=== PATIENT | male | born 1970 | race Two or more races ===

== ENCOUNTER 2021-04-15 21:15 | Inpatient (IN) | payer MEDICAID, OTHER ==
[~2021-04-15] VITALS: Ht 160 cm; Wt 67.3 kg
[2021-04-15 23:06] LABS: Basophils # (auto) 0 10 ^3/uL (0-0.2); Basophils % (auto) 0.3 % (0.0-2.0); Eosinophils # (auto) 0 10 ^3/uL (0-0.8); Eosinophils % (auto) 0.6 % (0.0-7.0); Hematocrit 42.3 % (41.0-53.0); Hemoglobin 14.9 g/dL (13.5-17.5); Lymphocytes # (auto) 1.6 10 ^3/uL (0.4-5.4); Lymphocytes % (auto) 18.5 % (10.0-50.0); Mean Corpuscular Hemoglobin 29.4 pg (28.0-32.0); Mean Corpuscular Hgb Conc. 35.3 g/dL (32.0-36.0); Mean Corpuscular Volume 83.3 fL (80.0-100.0); Monocytes # (auto) 0.6 10 ^3/uL (0-1.3); Monocytes % (auto) 6.4 % (0.0-12.0); Neutrophils # (auto) 6.4 10 ^3/uL (1.6-8.6); Neutrophils % (auto) 74.2 % (37.0-80.0); Red Blood Cells 5.07 10^6/uL (4.5-5.90); Red Cell Distribution Width 13.4 % (11.8-14.3); White Blood Cell 8.6 10^3/uL (4.4-10.8)
[2021-04-15 23:24] LABS: Albumin 3.5 g/dL (3.4-5.0); Anion Gap 8 (5-15); Blood Alcohol < 3.0 mg/dL (0-5); Blood Urea Nitrogen 16 mg/dL (7-18); Calcium 8.4 mg/dL (8.5-10.1); Carbon Dioxide 25 mmol/L (21-32); Chloride 106 mmol/L (98-107); GFR African American 110 mL/min; GFR Non-African American 91 mL/min; Glucose 181 mg/dL (74-106); Partial Thromboplastin Time 23.3 sec (23.6-33.0); Potassium 4.1 mmol/L (3.5-5.1); Sodium 139 mmol/L (136-145)
[2021-04-15 23:36] LABS: Alanine Aminotransferase 109 U/L (16-61); Alkaline Phosphatase 148 U/L (45-117); Aspartate Aminotransferase 54 U/L (15-37); Bilirubin, Total 0.3 mg/dL (0.2-1.0); Total Protein 6.8 g/dL (6.4-8.2)
[2021-04-16] MEDS ORDERED: METOCLOPRAMIDE HCL 5MG/ml INJ 2ml VIAL IV ONE
[2021-04-16] MEDS ORDERED: KETOROLAC TROMETH 30 MG/ML 1ML VIAL IV ONE
[2021-04-16] MEDS ORDERED: SODIUM CHLORIDE 0.9% 1,000 ML IV ONE
[2021-04-16] MEDS ORDERED: DOCUSATE SOD 100 MG CAP PO PRN (05:45)
[2021-04-16] MEDS ORDERED: hydrALAZINE HCL 20 MG/ML VL IV PRN (05:45)
[2021-04-16] MEDS ORDERED: ACETAMINOPHEN 325 MG TAB PO PRN (05:45)
[2021-04-16] MEDS ORDERED: HYDROcodone-ACET 5/325MG TAB PO PRN (05:45)
[2021-04-16] MEDS ORDERED: MORPHINE SULFATE 4 MG/ML SYR/VIAL IV PRN (05:45)
[2021-04-16] MEDS ORDERED: ONDANSETRON HCL 4 MG/2 ML VIAL IV PRN (05:45)
[2021-04-16] MEDS ORDERED: ACETAMINOPHEN 500 MG TAB PO PRN (07:30)
[2021-04-16] MEDS ORDERED: NITROGLYCERIN 0.4 MG SL TAB SL PRN (07:45)
[2021-04-16] MEDS ORDERED: MORPHINE SULFATE INJECTION 2 MG/ML SYRG IV PRN (07:45)
[2021-04-16 07:48] LABS: Urine Bacteria NONE SEEN /hpf (None Seen); Urine Blood Negative /uL (Negative); Urine Mucus FEW (None Seen); Urine Specific Gravity 1.013 (1.001-1.035); Urine WBC 1 /hpf (0 - 3)
[2021-04-16 07:56] LABS: Amphetamine Screen, Urine NEGATIVE (NEGATIVE); Barbiturate Scree,Urine NEGATIVE (NEGATIVE); Benzodiazephine Screen, Urine NEGATIVE (NEGATIVE); Cannabinoid Screen, Urine POSITIVE (NEGATIVE); Cocaine Screen, Urine NEGATIVE (NEGATIVE); Opiate Scree,Urine NEGATIVE (NEGATIVE); Phencyclidine Screen, Urine NEGATIVE (NEGATIVE)
[2021-04-16] MEDS: ALBUTEROL SULF HFA 90MCG INH 200DOSE IN PRN ×2 (09:05→23:46)
[2021-04-16] MEDS: BUDESONIDE (INHALATION) 180 MCG IH IN SCH ×2 (09:05→22:09)
[2021-04-16] MEDS: cefTRIAXone 1GM/50ML D5W 50 ML IV SCH (09:18)
[2021-04-16 09:36] LABS: Basophils # (auto) 0 10 ^3/uL (0-0.2); Basophils % (auto) 0.3 % (0.0-2.0); Eosinophils # (auto) 0 10 ^3/uL (0-0.8); Eosinophils % (auto) 0.6 % (0.0-7.0); Hemoglobin 14.1 g/dL (13.5-17.5); Lymphocytes # (auto) 2.4 10 ^3/uL (0.4-5.4); Lymphocytes % (auto) 29.6 % (10.0-50.0); Mean Corpuscular Hemoglobin 29.8 pg (28.0-32.0); Mean Corpuscular Hgb Conc. 35.2 g/dL (32.0-36.0); Mean Corpuscular Volume 84.7 fL (80.0-100.0); Monocytes # (auto) 0.6 10 ^3/uL (0-1.3); Monocytes % (auto) 7.7 % (0.0-12.0); Neutrophils # (auto) 5.1 10 ^3/uL (1.6-8.6); Neutrophils % (auto) 61.8 % (37.0-80.0); Red Blood Cells 4.72 10^6/uL (4.5-5.90); Red Cell Distribution Width 13.3 % (11.8-14.3); White Blood Cell 8.2 10^3/uL (4.4-10.8)
[2021-04-16 09:46] LABS: Albumin 3.2 g/dL (3.4-5.0); BUN/Creatinine Ratio 17.3; Calcium 8.2 mg/dL (8.5-10.1); Potassium 4.1 mmol/L (3.5-5.1)
[2021-04-16 09:51] LABS: Bilirubin, Total 0.3 mg/dL (0.2-1.0); Total Protein 6.4 g/dL (6.4-8.2)
[2021-04-16] MEDS: ZINC SULFATE 220mg CAP or TAB PO SCH (10:16)
[2021-04-16] MEDS: ASPirin 81 mg TAB PO SCH (10:16)
[2021-04-16] MEDS: AZITHROMYCIN 500MG/ 250ML 250 ML IV SCH (10:16)
[2021-04-16] MEDS: DexAMETHasone SOD PHOS 10MG/1ML VIAL INJ IV SCH (10:16)
[2021-04-16] MEDS: FAMOTIDINE (10MG/ML) 2ML VL IV SCH (10:16)
[2021-04-16] MEDS: ASCORBIC ACID 1,000 MG TAB PO SCH (10:17)
[2021-04-16] MEDS: ENOXAPARIN SOD 40 MG/0.4 ML SYRINGE SC SCH (10:17)
[2021-04-16] MEDS: CHOLECALCIFEROL (VITD3) 2,000 UNIT CAP/TAB PO SCH (10:17)
[2021-04-16 12:22] VITALS: BP 152/85
[2021-04-16 14:40] VITALS: BP 154/101
[2021-04-16] MEDS ORDERED: LOSARTAN POTASSIUM 25 MG TAB PO ONE (15:30)
[2021-04-16 16:53] VITALS: BP 154/101
[2021-04-16 22:00] VITALS: BP 152/74
[2021-04-16] MEDS ORDERED: ATORVASTATIN 20 MG TAB PO SCH (22:00)
[2021-04-17 05:00] VITALS: BP 148/92
[2021-04-17 08:28] LABS: Basophils # (auto) 0 10 ^3/uL (0-0.2); Basophils % (auto) 0.1 % (0.0-2.0); Eosinophils # (auto) 0 10 ^3/uL (0-0.8); Hematocrit 40.4 % (41.0-53.0); Hemoglobin 14.4 g/dL (13.5-17.5); Lymphocytes # (auto) 2.4 10 ^3/uL (0.4-5.4); Lymphocytes % (auto) 19.7 % (10.0-50.0); Mean Corpuscular Hgb Conc. 35.5 g/dL (32.0-36.0); Mean Corpuscular Volume 84.5 fL (80.0-100.0); Monocytes # (auto) 0.6 10 ^3/uL (0-1.3); Neutrophils % (auto) 75.2 % (37.0-80.0); Red Blood Cells 4.78 10^6/uL (4.5-5.90); Red Cell Distribution Width 13.5 % (11.8-14.3)
[2021-04-17 08:39] LABS: Albumin 3.5 g/dL (3.4-5.0); Calcium 8.7 mg/dL (8.5-10.1); Potassium 3.8 mmol/L (3.5-5.1)
[2021-04-17 08:43] LABS: BUN/Creatinine Ratio 20.4; Bilirubin, Total 0.5 mg/dL (0.2-1.0)
[2021-04-17 09:00] VITALS: BP 140/80
[2021-04-17] MEDS: ALBUTEROL SULF HFA 90MCG INH 200DOSE IN PRN ×2 (09:23→18:59)
[2021-04-17] MEDS: BUDESONIDE (INHALATION) 180 MCG IH IN SCH ×2 (09:24→18:59)
[2021-04-17] MEDS ORDERED: CLOPIDOGREL BISULFATE 75 MG TAB PO SCH (10:00)
[2021-04-17] MEDS ORDERED: LOSARTAN POTASSIUM 25 MG TAB PO SCH (10:00)
[2021-04-17 10:46] LABS: Hepatitis A Total Antibody Positive (Negative)
[2021-04-17 10:48] LABS: Hepatitis B Surface Antibody Negative (Negative)
[2021-04-17] MEDS: cefTRIAXone 1GM/50ML D5W 50 ML IV SCH (11:07)
[2021-04-17] MEDS: FAMOTIDINE (10MG/ML) 2ML VL IV SCH (11:08)
[2021-04-17] MEDS: DexAMETHasone SOD PHOS 10MG/1ML VIAL INJ IV SCH (11:08)
[2021-04-17] MEDS: ZINC SULFATE 220mg CAP or TAB PO SCH (11:12)
[2021-04-17] MEDS: ASPirin 81 mg TAB PO SCH (11:12)
[2021-04-17] MEDS: AZITHROMYCIN 500MG/ 250ML 250 ML IV SCH (11:12)
[2021-04-17] MEDS: CHOLECALCIFEROL (VITD3) 2,000 UNIT CAP/TAB PO SCH (11:13)
[2021-04-17] MEDS: ASCORBIC ACID 1,000 MG TAB PO SCH (11:13)
[2021-04-17] MEDS: ENOXAPARIN SOD 40 MG/0.4 ML SYRINGE SC SCH (11:14)
[2021-04-17] MEDS ORDERED: ALBUAER3 IN (12:31)
[2021-04-17] MEDS ORDERED: ASPI1TAB20 PO (12:31)
[2021-04-17] MEDS ORDERED: ZINC220T6 PO (12:31)
[2021-04-17] MEDS ORDERED: CHOL1CAP47 PO (12:31)
[2021-04-17] MEDS ORDERED: AZIT500T66 PO (12:31)
[2021-04-17] MEDS ORDERED: LOS25T PO (12:31)
[2021-04-17] MEDS ORDERED: ASCO10003 PO (12:31)
[2021-04-17 13:00] VITALS: BP 138/83
[2021-04-17 13:09] LABS: Hepatitis C Antibody Negative (Negative)
[2021-04-17 17:00] VITALS: BP 150/86
[2021-04-17 17:21] VITALS: BP 138/83
== END 2021-04-17 19:00 | disposition home or self-care (01) | DRG 137 ==
LOC: ER 21:17 → TELE 04-16 07:33 → TELE-EAST 04-16 14:37
PROVIDERS: ADMIT Nurse Practitioner Family; ATTEND Internal Medicine
DX: U07.1 COVID-19 (principal); I21.A1 Myocardial infarction type 2; R65.10 Systemic inflammatory response syndrome (SIRS) of non-infectious origin without acute organ dysfunction; I10 Essential (primary) hypertension; R73.9 Hyperglycemia, unspecified; E78.1 Pure hyperglyceridemia; E78.5 Hyperlipidemia, unspecified
CPT/HCPCS: 36415; 70450; 71045; 76705; 80053; 80061; 80307; 80320; 81001; 83036; 83735; 84484; 85025; 85379; 85610; 85730; 86704; 86706; 86708; 86803; 86850; 86900; 86901; 87340; 87426; 93005; 93306; 94640; 96365; 96367; 96372; 96375; G0378; J0696; J1100; J1885; J3490